=== PATIENT | female | born 1960 | race Caucasian/White ===

== ENCOUNTER 2016-10-25 19:52 | Emergency (ER) | payer BC ==
[~2016-10-25] VITALS: Ht 167.6 cm; Wt 70.2 kg
[2016-10-25 20:14] VITALS: TEMP 36.9; Ht 167.6 cm; Wt 70.2 kg
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
[2016-10-25] MEDS ORDERED: AMOX875T PO (22:07)
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
[2016-10-25] MEDS ORDERED: AMOXICIL/CLAVU 875MG HOME PACK PO ONE (22:15)
[2016-10-25] MEDS ORDERED: AMOXICILLIN/CLAVULANATE TAB 875 MG TAB PO ONE (22:15)
[2016-10-25 22:24] VITALS: BP 142/78; PULSE 57; O2SAT 97
== END 2016-10-25 22:25 | disposition home or self-care (01) ==
LOC: C.EDB 19:54 → C.EDD 22:25
DX: S02.92XA Unspecified fracture of facial bones, initial encounter for closed fracture (principal); S02.402A Zygomatic fracture, unspecified side, initial encounter for closed fracture; J34.2 Deviated nasal septum; Y04.2XXA Assault by strike against or bumped into by another person, initial encounter